=== PATIENT | female | born 1995 | race Native Hawaiian/Other Pacific Islander ===

== ENCOUNTER 2023-12-08 05:11 | Inpatient (IN) | payer OTHER ==
[~2023-12-08] VITALS: Ht 162.6 cm; Wt 92.0 kg
[2023-12-08] VITALS (42 sets, daily range): BP systolic 99–167; BP diastolic 53–110; TEMP 99.1; O2SAT 97–99
[2023-12-08] MEDS ORDERED: PRENTAB9 PO (05:29)
[2023-12-08] MEDS ORDERED: HOME MED LIST COMPLETE! XX SCH (05:30)
[2023-12-08] MEDS ORDERED: OXYTOCIN INJ 10UNITS/ML 1ML VIAL IM PRN (05:35)
[2023-12-08] MEDS ORDERED: LIDOCAINE 1% MDV 20ML VIAL INFIL PRN (05:35)
[2023-12-08] MEDS ORDERED: CARBOPROST TROMETHAMINE 250 MCG/ML AMP IM PRN (05:35)
[2023-12-08] MEDS ORDERED: OXYTOCIN DRIP 30 UNITS in IV 1 EA IV PRN ×3 (05:35)
[2023-12-08] MEDS ORDERED: METHYLERGONOVINE MALEATE 0.2MG/ML 1ML VIAL IM PRN (05:35)
[2023-12-08] MEDS ORDERED: TRANEXAMIC ACID INJection 1,000 MG in NS 100 ML IV PRN (05:35)
[2023-12-08] MEDS: AMPICILLIN SOD 2 GM in D5W MINI-BAG PLUS 100 ML IV STA (05:44)
[2023-12-08 05:45] LABS: HEMATOCRIT 33.5 % (36.0-47.0); HEMOGLOBIN 11.1 g/dl (12.0-15.5); MEAN CORPUSCULAR HEMOGLOBIN 30.3 pg (27.0-33.0); MEAN CORPUSCULAR HGB CONC 33.1 g/dl (32.0-36.5); MEAN CORPUSCULAR VOLUME 91.5 fl (80.0-96.0); PLATELET COUNT, AUTOMATED 297 10^3/uL (150-450); RED BLOOD COUNT 3.66 10^6/uL (4.00-5.40); WHITE BLOOD COUNT 12.4 10^3/uL (4.0-10.0)
[2023-12-08] MEDS ORDERED: LR 500 ML IV PRN (06:05)
[2023-12-08] MEDS ORDERED: diphenhydrAMINE 50MG/ML VIAL IV PRN ×2 (06:05→11:45)
[2023-12-08] MEDS ORDERED: ePHEDrine SULFATE 25 MG/5 ML(5MG/ML) SYRINGE IVP PRN (06:05)
[2023-12-08] MEDS ORDERED: EPIDURAL/PCA KEYS XX PRN (06:05)
[2023-12-08] MEDS ORDERED: NALOXONE INJ 0.4MG/1ML VIAL IV PRN ×3 (06:05→11:45)
[2023-12-08] MEDS: FENTANYL/ROPIVACAINE/NACL BAG 100 ML EPIDURAL SCH (06:08)
[2023-12-08 06:10] LABS: URIC ACID 3.1 MG/DL (3.1-7.8)
[2023-12-08 06:12] LABS: LDH LACTATE DEHYDROGENASE 135 U/L (120-246)
[2023-12-08 06:13] LABS: ALT/SGPT < 9 U/L (7.0-40); AST/SGOT 13 U/L (<34); BILIRUBIN,TOTAL 0.5 MG/DL (0.3-1.2); CREATININE FOR GFR 0.62 MG/DL (0.55-1.30); GLOMERULAR FILTRATION RATE > 60.0 (>60)
[2023-12-08] MEDS: LR 1,000 ML IV SCH ×2 (06:26→11:45)
[2023-12-08] MEDS: LACTATED RINGER'S 1000 ML IV STA (06:26)
[2023-12-08 07:31] LABS: TOTAL PROTEIN,RANDOM URINE 17.2 MG/DL (0.0-14.0)
[2023-12-08] MEDS: ONDANSETRON 4MG 2ML VIAL IV PRN (08:51)
[2023-12-08] MEDS: ACETAMINOPHEN *IV* 1,000 MG in IV 1 EA IV ONE (09:57)
[2023-12-08] MEDS ORDERED: AMPICILLIN SOD 1 GM in D5W MINI-BAG PLUS 50 ML IV SCH (10:00)
[2023-12-08] MEDS: TERBUTALINE SULFATE 1 MG/ML 1ML VIAL SC STA (10:07)
[2023-12-08] MEDS: AZITHROMYCIN INJ 500 MG, VIAL MATE ADAPTER 1 EACH in NS 250 ML IV ONE (10:35)
[2023-12-08] MEDS ORDERED: ceFAZolin 2 GM/D5W 50 ML IV BAG As Ordered ONE (10:41)
[2023-12-08] MEDS ORDERED: AZITHROMYCIN INJ 500MG VIAL As Ordered ONE (10:41)
[2023-12-08] MEDS: ceFAZolin SOD 2 GM in IV 1 EA IV ONE (10:42)
[2023-12-08] MEDS ORDERED: ONDANSETRON 4MG 2ML VIAL As Ordered ONE (11:03)
[2023-12-08] MEDS ORDERED: OXYTOCIN 30UNITS IN 0.9% NaCl 500ML IV BAG As Ordered ONE (11:03)
[2023-12-08] MEDS ORDERED: KETOROLAC 60MG 2ML VIAL As Ordered ONE (11:03)
[2023-12-08] MEDS ORDERED: LIDOCAINE 2% W/EPINEPHRINE 20ML VIAL **PRES FREE As Ordered ONE (11:03)
[2023-12-08] MEDS ORDERED: MORPHINE PRES-FREE INJ 10 MG/10 ML VIAL As Ordered ONE (11:06)
[2023-12-08 11:13] LABS: CORD GAS ABE A -6.8; CORD GAS HCO3 A 20.9 MMOL/L; CORD GAS O2 SAT A 15.3 %; CORD GAS PCO2 A 50.9 mmHg; CORD GAS PH A 7.232 UNITS; CORD GAS PO2 A 10.7 mmHg; CORD GAS SBC A 17.3 MMOL/L; CORD GAS TCO2 A 22.5 MMOL/L
[2023-12-08 11:15] LABS: CORD GAS ABE V -7.7; CORD GAS HCO3 V 19.5 MMOL/L; CORD GAS O2 SAT V 23.9 %; CORD GAS PCO2 V 45.8 mmHg; CORD GAS PH V 7.246 UNITS; CORD GAS PO2 V 12.3 mmHg; CORD GAS SBC V 16.8 MMOL/L; CORD GAS TCO2 V 20.9 MMOL/L
[2023-12-08] MEDS ORDERED: oxyCODONE 5MG TAB PO PRN ×3 (11:40→11:45)
[2023-12-08] MEDS ORDERED: SIMETHICONE 80MG CHEW TAB PO PRN (11:40)
[2023-12-08] MEDS ORDERED: MOM 30ML SUSPENSION UDC PO PRN (11:40)
[2023-12-08] MEDS ORDERED: ONDANSETRON 4MG 2ML VIAL IV PRN ×2 (11:40→11:45)
[2023-12-08] MEDS ORDERED: fentaNYL 100 MCG/2 ML INJECTION IV PRN (11:45)
[2023-12-08] MEDS ORDERED: **NOTE PATIENT COMMENT** MISC XX SCH (11:45)
[2023-12-08] MEDS: OXYTOCIN DRIP 30 UNITS in IV 1 EA IV SCH (12:11)
[2023-12-08] MEDS: METOCLOPRAMIDE INJ 10MG/2ML VIAL IV PRN (16:19)
[2023-12-08] MEDS: SLF 3 ML SYR IV SCH (16:19)
[2023-12-08] MEDS: KETOROLAC 30 MG/ML 1ML VIAL IV SCH (18:00)
[2023-12-08] MEDS: DOCUSATE SODIUM 100MG CAPSULE PO SCH (22:04)
[2023-12-09 02:00] VITALS: BP 132/57; O2SAT 100
[2023-12-09 05:56] VITALS: BP 123/57; O2SAT 98
[2023-12-09] MEDS: IBUPROFEN 800 MG TAB PO SCH (06:27)
[2023-12-09] MEDS: PRENATAL VITAMINS CHEWABLE TABLET PO SCH (07:09)
[2023-12-09 07:31] LABS: HEMOGLOBIN 9.2 g/dl (12.0-15.5); MEAN CORPUSCULAR HEMOGLOBIN 30.8 pg (27.0-33.0); MEAN CORPUSCULAR HGB CONC 32.9 g/dl (32.0-36.5); MEAN CORPUSCULAR VOLUME 93.6 fl (80.0-96.0); PLATELET COUNT, AUTOMATED 224 10^3/uL (150-450); RED BLOOD COUNT 2.99 10^6/uL (4.00-5.40); WHITE BLOOD COUNT 19.7 10^3/uL (4.0-10.0)
[2023-12-09] MEDS ORDERED: PRENATAL VITAMINS CHEWABLE TABLET PO SCH (09:00)
[2023-12-09 10:00] VITALS: BP 120/56; O2SAT 99
[2023-12-09] MEDS ORDERED: IBUPROFEN 800 MG TAB PO SCH (14:00)
[2023-12-09] MEDS: RHOGAM 300MCG (1500IU) INJ IM SCH (14:55)
[2023-12-09] MEDS: ACETAMINOPHEN 500 MG TAB PO PRN (16:56)
[2023-12-09 18:00] VITALS: BP 107/59; O2SAT 100
[2023-12-09 22:09] VITALS: BP 117/55; O2SAT 98
[2023-12-10 02:17] VITALS: BP 144/60; O2SAT 99
[2023-12-10 06:22] VITALS: BP 136/56; O2SAT 99
[2023-12-10] MEDS: MEASLES,MUMPS,RUBELLA VACCINE INJ (MMR-II) SC.IMMUN ONE (07:45)
[2023-12-10 10:00] VITALS: BP 118/58; O2SAT 100
[2023-12-10 14:00] VITALS: BP 133/66; O2SAT 100
== END 2023-12-10 15:55 | disposition home or self-care (01) | DRG 773 ==
LOC: M LDO 05:11 → M LDI 05:24 → M OBS 13:15
PROVIDERS: ADMIT Obstetrics & Gynecology; ATTEND Obstetrics & Gynecology
PROC: 10D00Z1 Extraction of Products of Conception, Low, Open Approach (ICD-10-PCS; principal; 2023-12-08 11:39)
DX: O34.211 Maternal care for low transverse scar from previous cesarean delivery (principal); O66.41 Failed attempted vaginal birth after previous cesarean delivery; O99.824 Streptococcus B carrier state complicating childbirth; O24.420 Gestational diabetes mellitus in childbirth, diet controlled; Z3A.39 39 weeks gestation of pregnancy; O77.0 Labor and delivery complicated by meconium in amniotic fluid; Z37.0 Single live birth